=== PATIENT | male | born 1985 | race African-American/Black ===

== ENCOUNTER 2017-01-02 14:24 | Emergency (ER) | payer MEDICAID, OTHER ==
[~2017-01-02] VITALS: Ht 172.7 cm; Wt 78.0 kg
[2017-01-02 14:32] VITALS: BP 129/78
== END 2017-01-02 16:10 | disposition home or self-care (01) ==
LOC: ED 16:00
DX: J02.9 Acute pharyngitis, unspecified (principal); H92.01 Otalgia, right ear
CPT/HCPCS: 99283